=== PATIENT | male | born 1960 | race Two or more races ===

== ENCOUNTER 2021-11-24 01:10 | Inpatient (IN) | payer MEDICAID ==
[~2021-11-24] VITALS: Ht 167.6 cm; Wt 184.0 kg
[2021-11-24 02:05] LABS: BASOPHILS % (AUTO) 0.7 % (0.0-2.0); EOSINOPHILS % (AUTO) 1.5 % (1.0-6.0); HEMOGLOBIN 13.2 g/dL (13.5-17.5); LYMPHOCYTES # (AUTO) 1.3 K/uL (1.0-4.8); LYMPHOCYTES % (AUTO) 19.4 % (22.0-44.0); MEAN CORPUSCULAR HEMOGLOBIN 29.5 pg (26.0-34.0); MEAN CORPUSCULAR HGB CONC 33.7 G/dL (31.0-37.0); MEAN CORPUSCULAR VOLUME 88 fL (80-100); MONOCYTES # (AUTO) 0.6 K/uL (0.1-1.0); MONOCYTES % (AUTO) 8.1 % (2.0-9.0); NEUTROPHILS # (AUTO) 4.9 K/uL (1.8-7.7); NEUTROPHILS % (AUTO) 70.3 % (40.0-70.0); PLATELET COUNT (AUTO) 257 K/uL (150-450); RED BLOOD CELL COUNT(AUTO) 4.46 MIL/uL (4.50-5.90); RED CELL DISTRIBUTION WIDTH 13.9 % (11.5-14.5)
[2021-11-24 02:12] LABS: ANION GAP 6 mmol/L (8-16); CALCIUM, TOTAL 9.1 mg/dL (8.8-10.5); CARBON DIOXIDE 31 mmol/L (22-29); CHLORIDE 101 mmol/L (98-107); CREATININE 0.86 mg/dL (0.60-1.30); GLOMERULAR FILTR. RATE CALC > 60 mL/min (>60); GLUCOSE,RANDOM 120 mg/dL (70-110); POTASSIUM 3.4 mmol/L (3.5-5.1); SODIUM SERUM 138 mmol/L (136-145); UREA NITROGEN, BLOOD 17 mg/dL (7-18)
[2021-11-24 02:18] LABS: ALANINE AMINOTRANSFERASE 49 U/L (12-78); ALBUMIN 3.7 g/dL (3.4-5.0); ALKALINE PHOSPHATASE 80 U/L (46-116); ASPARTATE AMINOTRANSFERASE 40 U/L (15-37); BILIRUBIN,TOTAL 0.4 mg/dL (0.1-1.0)
[2021-11-24 02:38] LABS: COVID AG,FIA SOURCE NASAL SWAB
[2021-11-24] MEDS ORDERED: POTASSIUM CHLORIDE 20 MEQ ER TABLET PO ONE (06:30)
[2021-11-24] MEDS ORDERED: LORazepam 2 MG TABLET PO PRN (10:45)
[2021-11-24] MEDS ORDERED: OLANZapine 5 MG RAPDIS TABLET PO PRN (10:45)
[2021-11-24] MEDS ORDERED: ZOLPIDEM TARTRATE 10 MG TABLET PO PRN (10:45)
[2021-11-24 17:00] LABS: APPEARANCE,URINE CLEAR (CLEAR); BILIRUBIN,URINE NEGATIVE (NEGATIVE); GLUCOSE, URINE (UA) NEGATIVE (NEGATIVE); KETONES,URINE TRACE mg/dL (NEGATIVE); LEUKOCYTE ESTERASE ,URINE SMALL (NEGATIVE); NITRATE,URINE NEGATIVE (NEGATIVE); OCCULT BLOOD,URINE NEGATIVE (NEGATIVE); PH,URINE 6.5 (5.0-8.0); PROTEIN,URINE 30-70 mg/dL (NEGATIVE); SPECIFIC GRAVITIY, URINE 1.024 (1.003-1.030); UROBILINOGEN,URINE <=1.0 mg/dL (<=1.0)
[2021-11-24 17:06] LABS: AMPHET/METH SCREEN,URINE POSITIVE (NEGATIVE); BARBITURATE SCREEN, URINE NEGATIVE (NEGATIVE); BENZODIAZEPINES SCREEN,URINE NEGATIVE (NEGATIVE); CANNABINOID SCREEN,URINE NEGATIVE (NEGATIVE); COCAINE SCREEN,URINE NEGATIVE (NEGATIVE); METHADONE SCREEN, URINE NEGATIVE (NEGATIVE); OPIATE SCREEN,URINE NEGATIVE (NEGATIVE)
[2021-11-24 17:08] LABS: PHENCYCLIDINE SCREEN,URINE NEGATIVE (NEGATIVE)
[2021-11-24 17:25] LABS: BACTERIA,URINE None Seen /HPF (None Seen); RBC,URINE None Seen /HPF (0-2); SQUAMOUS EPITHELIAL CELL,UR Few /LPF (None Seen); WBC,URINE 0-2 /HPF (0-5)
[2021-11-25 11:20] VITALS: BP 111/74
[2021-11-25] MEDS ORDERED: PROMETHAZINE HCL 25 MG TABLET PO PRN (14:30)
[2021-11-25] MEDS ORDERED: GuaiFENesin/D-METHORPHAN [SUGAR-FREE] 200-20MG/10 ML SYRUP UDCUP PO PRN (14:30)
[2021-11-25] MEDS ORDERED: TUBERCULIN, PURIFIED PROTEIN DERIVATIVE 5 TU/0.1 ML SYRINGE ID ONE (14:30)
[2021-11-25] MEDS ORDERED: MAG HYDROX/AL HYDROX/SIMETH ES 30 ML SUSPENSION UDCUP PO PRN (14:30)
[2021-11-25] MEDS ORDERED: ACETAMINOPHEN 325 MG TABLET PO PRN (14:30)
[2021-11-25] MEDS ORDERED: LOPERAMIDE HCL 2 MG CAPSULE PO PRN (14:30)
[2021-11-25] MEDS ORDERED: MAGNESIUM HYDROXIDE SUSPENSION 30 ML UDCUP PO PRN (14:30)
[2021-11-25] MEDS ORDERED: HydrOXYzine PAMOATE 50 MG CAPSULE PO PRN (14:30)
[2021-11-25] MEDS: THIAMINE 100 MG TABLET PO SCH (16:17)
[2021-11-25 17:14] VITALS: BP 116/69
[2021-11-25] MEDS: MELATONIN 5 MG TABLET PO SCH (20:11)
[2021-11-25] MEDS ORDERED: OLANZapine 5 MG RAPDIS TABLET PO SCH (21:00)
[2021-11-26 06:52] LABS: HEMOGLOBIN A1C 6.3 % (3.8-5.6)
[2021-11-26 07:12] LABS: CHOL/HDL RATIO 3.9 (4.2-7.3); FREE T4 (FREE THYROXINE) 1.11 ng/dL (0.76-1.46); THYROID STIMULATING HORMONE 2.03 uIU/mL (0.36-3.74)
[2021-11-26 08:00] VITALS: BP 128/93
[2021-11-26] MEDS: OMEGA-3/DHA/EPA/FISH OIL 1,000 MG CAPSULE PO SCH (08:52)
[2021-11-26] MEDS: NALTREXONE HCL 50 MG TABLET PO SCH (08:52)
[2021-11-26] MEDS: MULTIVITAMINS WITH MINERALS, THERAPEUTIC TABLET PO SCH (08:52)
[2021-11-26] MEDS: THIAMINE 100 MG TABLET PO SCH ×2 (08:52→16:58)
[2021-11-26] MEDS: FOLIC ACID 1 MG TABLET PO SCH (08:52)
[2021-11-26 16:18] VITALS: BP 112/74
[2021-11-26] MEDS: MELATONIN 5 MG TABLET PO SCH (20:28)
[2021-11-26] MEDS: OLANZapine 5 MG RAPDIS TABLET PO SCH (20:28)
[2021-11-27 09:06] VITALS: BP 111/67
[2021-11-27] MEDS: MULTIVITAMINS WITH MINERALS, THERAPEUTIC TABLET PO SCH (09:30)
[2021-11-27] MEDS: THIAMINE 100 MG TABLET PO SCH ×2 (09:31→16:12)
[2021-11-27] MEDS: OMEGA-3/DHA/EPA/FISH OIL 1,000 MG CAPSULE PO SCH (09:31)
[2021-11-27] MEDS: FOLIC ACID 1 MG TABLET PO SCH (09:31)
[2021-11-27] MEDS: NALTREXONE HCL 50 MG TABLET PO SCH (09:31)
[2021-11-27 16:11] VITALS: BP 119/75
[2021-11-27] MEDS ORDERED: NALT50TA PO (16:35)
[2021-11-27] MEDS ORDERED: OLAN5TAB94 PO (16:35)
[2021-11-27] MEDS ORDERED: OMEG-108 PO (16:35)
[2021-11-27] MEDS ORDERED: MELA5TAB40 PO (16:35)
[2021-11-27] MEDS ORDERED: DIVA-80 PO (16:35)
[2021-11-27] MEDS: DIVALPROEX SODIUM 500 MG ER TABLET PO SCH (20:04)
[2021-11-27] MEDS: MELATONIN 5 MG TABLET PO SCH (20:04)
[2021-11-27] MEDS: OLANZapine 5 MG RAPDIS TABLET PO SCH (20:04)
[2021-11-28] MEDS: OMEGA-3/DHA/EPA/FISH OIL 1,000 MG CAPSULE PO SCH (08:16)
[2021-11-28] MEDS: FOLIC ACID 1 MG TABLET PO SCH (08:16)
[2021-11-28] MEDS: NALTREXONE HCL 50 MG TABLET PO SCH (08:16)
[2021-11-28] MEDS: MULTIVITAMINS WITH MINERALS, THERAPEUTIC TABLET PO SCH (08:16)
[2021-11-28] MEDS: THIAMINE 100 MG TABLET PO SCH ×2 (08:16→17:20)
[2021-11-28 09:50] VITALS: BP 113/80
[2021-11-28 16:04] VITALS: BP 101/79
[2021-11-28] MEDS ORDERED: NAPROXEN 500 MG TABLET PO SCH (17:00)
[2021-11-28] MEDS: OLANZapine 10 MG RAPDIS TABLET PO SCH (20:49)
[2021-11-28] MEDS: DIVALPROEX SODIUM 500 MG ER TABLET PO SCH (20:49)
[2021-11-28] MEDS: MELATONIN 5 MG TABLET PO SCH (20:49)
[2021-11-29] MEDS: NAPROXEN 500 MG TABLET PO SCH ×2 (06:35→16:24)
[2021-11-29 08:12] VITALS: BP 109/79
[2021-11-29] MEDS: THIAMINE 100 MG TABLET PO SCH ×2 (09:17→16:24)
[2021-11-29] MEDS: FOLIC ACID 1 MG TABLET PO SCH (09:17)
[2021-11-29] MEDS: NALTREXONE HCL 50 MG TABLET PO SCH (09:17)
[2021-11-29] MEDS: MULTIVITAMINS WITH MINERALS, THERAPEUTIC TABLET PO SCH (09:17)
[2021-11-29] MEDS: OMEGA-3/DHA/EPA/FISH OIL 1,000 MG CAPSULE PO SCH (09:17)
[2021-11-29 16:01] VITALS: BP 100/67
[2021-11-29] MEDS: MELATONIN 5 MG TABLET PO SCH (20:09)
[2021-11-29] MEDS: OLANZapine 10 MG RAPDIS TABLET PO SCH (20:09)
[2021-11-29] MEDS: DIVALPROEX SODIUM 500 MG ER TABLET PO SCH (20:09)
[2021-11-30] MEDS: NAPROXEN 500 MG TABLET PO SCH ×2 (06:59→16:28)
[2021-11-30 07:54] LABS: COVID AG,FIA SOURCE NASAL SWAB
[2021-11-30] MEDS: MULTIVITAMINS WITH MINERALS, THERAPEUTIC TABLET PO SCH (08:22)
[2021-11-30] MEDS: THIAMINE 100 MG TABLET PO SCH ×2 (08:22→16:28)
[2021-11-30] MEDS: NALTREXONE HCL 50 MG TABLET PO SCH (08:22)
[2021-11-30] MEDS: OMEGA-3/DHA/EPA/FISH OIL 1,000 MG CAPSULE PO SCH (08:22)
[2021-11-30] MEDS: FOLIC ACID 1 MG TABLET PO SCH (08:22)
[2021-11-30 08:30] VITALS: BP 138/82
[2021-11-30 16:19] VITALS: BP 105/69
[2021-11-30] MEDS: DIVALPROEX SODIUM 500 MG ER TABLET PO SCH (20:27)
[2021-11-30] MEDS: OLANZapine 10 MG RAPDIS TABLET PO SCH (20:27)
[2021-11-30] MEDS: MELATONIN 5 MG TABLET PO SCH (20:27)
[2021-12-01] MEDS: NAPROXEN 500 MG TABLET PO SCH ×2 (06:33→16:32)
[2021-12-01] MEDS: THIAMINE 100 MG TABLET PO SCH ×2 (08:35→16:32)
[2021-12-01] MEDS: MULTIVITAMINS WITH MINERALS, THERAPEUTIC TABLET PO SCH (08:35)
[2021-12-01] MEDS: NALTREXONE HCL 50 MG TABLET PO SCH (08:35)
[2021-12-01] MEDS: OMEGA-3/DHA/EPA/FISH OIL 1,000 MG CAPSULE PO SCH (08:35)
[2021-12-01] MEDS: FOLIC ACID 1 MG TABLET PO SCH (08:36)
[2021-12-01 09:10] VITALS: BP 119/80
[2021-12-01 16:00] VITALS: BP 130/79
[2021-12-01] MEDS: OLANZapine 10 MG RAPDIS TABLET PO SCH (20:19)
[2021-12-01] MEDS: DIVALPROEX SODIUM 500 MG ER TABLET PO SCH (20:19)
[2021-12-01] MEDS: MELATONIN 5 MG TABLET PO SCH (20:19)
[2021-12-02] MEDS: NAPROXEN 500 MG TABLET PO SCH ×2 (06:48→16:20)
[2021-12-02] MEDS: OMEGA-3/DHA/EPA/FISH OIL 1,000 MG CAPSULE PO SCH (08:18)
[2021-12-02] MEDS: MULTIVITAMINS WITH MINERALS, THERAPEUTIC TABLET PO SCH (08:18)
[2021-12-02] MEDS: THIAMINE 100 MG TABLET PO SCH ×2 (08:18→16:20)
[2021-12-02] MEDS: FOLIC ACID 1 MG TABLET PO SCH (08:19)
[2021-12-02] MEDS: NALTREXONE HCL 50 MG TABLET PO SCH (08:19)
[2021-12-02 09:08] VITALS: BP 155/99
[2021-12-02 16:00] VITALS: BP 107/69
[2021-12-02] MEDS: OLANZapine 10 MG RAPDIS TABLET PO SCH (20:25)
[2021-12-02] MEDS: MELATONIN 5 MG TABLET PO SCH (20:25)
[2021-12-02] MEDS: DIVALPROEX SODIUM 500 MG ER TABLET PO SCH (20:26)
[2021-12-03] MEDS: OMEGA-3/DHA/EPA/FISH OIL 1,000 MG CAPSULE PO SCH (08:04)
[2021-12-03] MEDS: NAPROXEN 500 MG TABLET PO SCH ×2 (08:04→16:37)
[2021-12-03] MEDS: FOLIC ACID 1 MG TABLET PO SCH (08:05)
[2021-12-03] MEDS: MULTIVITAMINS WITH MINERALS, THERAPEUTIC TABLET PO SCH (08:06)
[2021-12-03] MEDS: NALTREXONE HCL 50 MG TABLET PO SCH (08:06)
[2021-12-03] MEDS: THIAMINE 100 MG TABLET PO SCH ×2 (08:06→16:37)
[2021-12-03 09:10] VITALS: BP 134/84
[2021-12-03 16:00] VITALS: BP 119/70
[2021-12-03] MEDS: MELATONIN 5 MG TABLET PO SCH (20:33)
[2021-12-03] MEDS: OLANZapine 10 MG RAPDIS TABLET PO SCH (20:33)
[2021-12-03] MEDS: DIVALPROEX SODIUM 500 MG ER TABLET PO SCH (20:33)
[2021-12-04] MEDS: NAPROXEN 500 MG TABLET PO SCH (06:36)
[2021-12-04] MEDS: NALTREXONE HCL 50 MG TABLET PO SCH (08:20)
[2021-12-04] MEDS: THIAMINE 100 MG TABLET PO SCH ×2 (08:20→16:08)
[2021-12-04] MEDS: MULTIVITAMINS WITH MINERALS, THERAPEUTIC TABLET PO SCH (08:20)
[2021-12-04] MEDS: OMEGA-3/DHA/EPA/FISH OIL 1,000 MG CAPSULE PO SCH (08:20)
[2021-12-04] MEDS: FOLIC ACID 1 MG TABLET PO SCH (08:24)
[2021-12-04 09:17] VITALS: BP 142/76
[2021-12-04] MEDS: PANTOPRAZOLE SODIUM 40 MG DR TABLET PO SCH (12:55)
[2021-12-04] MEDS: RIVAROXABAN 20 MG TABLET PO SCH (12:55)
[2021-12-04 16:14] VITALS: BP 117/65
[2021-12-04] MEDS: MELATONIN 5 MG TABLET PO SCH (20:07)
[2021-12-04] MEDS: DIVALPROEX SODIUM 500 MG ER TABLET PO SCH (20:07)
[2021-12-04] MEDS: OLANZapine 10 MG RAPDIS TABLET PO SCH (20:08)
[2021-12-05] MEDS: OMEGA-3/DHA/EPA/FISH OIL 1,000 MG CAPSULE PO SCH (08:08)
[2021-12-05] MEDS: PANTOPRAZOLE SODIUM 40 MG DR TABLET PO SCH (08:08)
[2021-12-05] MEDS: NALTREXONE HCL 50 MG TABLET PO SCH (08:08)
[2021-12-05] MEDS: FOLIC ACID 1 MG TABLET PO SCH (08:09)
[2021-12-05] MEDS: THIAMINE 100 MG TABLET PO SCH (08:09)
[2021-12-05] MEDS: MULTIVITAMINS WITH MINERALS, THERAPEUTIC TABLET PO SCH (08:09)
[2021-12-05] MEDS: RIVAROXABAN 20 MG TABLET PO SCH (08:09)
[2021-12-05 08:27] VITALS: BP 152/96
[2021-12-05 16:12] VITALS: BP 110/73
[2021-12-05] MEDS: MELATONIN 5 MG TABLET PO SCH (21:26)
[2021-12-05] MEDS: DIVALPROEX SODIUM 500 MG ER TABLET PO SCH (21:27)
[2021-12-05] MEDS: OLANZapine 10 MG RAPDIS TABLET PO SCH (21:27)
[2021-12-06] MEDS: OMEGA-3/DHA/EPA/FISH OIL 1,000 MG CAPSULE PO SCH (08:12)
[2021-12-06] MEDS: NALTREXONE HCL 50 MG TABLET PO SCH (08:12)
[2021-12-06] MEDS: MULTIVITAMINS WITH MINERALS, THERAPEUTIC TABLET PO SCH (08:12)
[2021-12-06] MEDS: PANTOPRAZOLE SODIUM 40 MG DR TABLET PO SCH (08:13)
[2021-12-06] MEDS: RIVAROXABAN 20 MG TABLET PO SCH (08:14)
[2021-12-06 08:29] VITALS: BP 141/83
[2021-12-06] MEDS ORDERED: PANT-31 PO (09:44)
[2021-12-06] MEDS ORDERED: MULT-1239 PO (09:44)
[2021-12-06] MEDS ORDERED: RIVA20TA PO (09:44)
== END 2021-12-06 12:45 | disposition home or self-care (01) | DRG 750 ==
LOC: EMS 01:13 → 3EX 11-25 10:12 → 3EI 11-27 16:07
PROVIDERS: ADMIT Psychiatry & Neurology Psychiatry; ATTEND Psychiatry & Neurology Psychiatry
DX: F20.9 Schizophrenia, unspecified (principal); R45.851 Suicidal ideations; E11.9 Type 2 diabetes mellitus without complications; I82.441 Acute embolism and thrombosis of right tibial vein; D64.9 Anemia, unspecified; F10.10 Alcohol abuse, uncomplicated; F15.10 Other stimulant abuse, uncomplicated; F17.210 Nicotine dependence, cigarettes, uncomplicated; Z20.822 Contact with and (suspected) exposure to COVID-19; M19.90 Unspecified osteoarthritis, unspecified site; R41.843 Psychomotor deficit; Y90.9 Presence of alcohol in blood, level not specified; Z59.02 Unsheltered homelessness; Z59.00 Homelessness unspecified; Z79.84 Long term (current) use of oral hypoglycemic drugs
CPT/HCPCS: 80053; 80061; 80164; 81001; 83036; 84153; 84439; 84443; 85025; 86592; 93005; 93970; 99285; G0378; G0480; Q9967

== ENCOUNTER 2021-12-10 09:21 | Emergency (ER) | payer MEDICAID ==
[~2021-12-10] VITALS: Ht 162.6 cm; Wt 83.0 kg
[~2021-12-10 09:21] MED LIST: DIVA-80 PO; MELA5TAB40 PO; MULT-1239 PO; NALT50TA PO; OLAN5TAB94 PO; OMEG-108 PO; PANT-31 PO; RIVA20TA PO
[2021-12-10 09:27] VITALS: BP 132/78
[2021-12-10 11:03] LABS: ALANINE AMINOTRANSFERASE 43 U/L (12-78); ALKALINE PHOSPHATASE 73 U/L (46-116); ANION GAP 6 mmol/L (8-16); ASPARTATE AMINOTRANSFERASE 41 U/L (15-37); BILIRUBIN,TOTAL 0.7 mg/dL (0.1-1.0); CALCIUM, TOTAL 8.8 mg/dL (8.8-10.5); CARBON DIOXIDE 31 mmol/L (22-29); CHLORIDE 102 mmol/L (98-107); CREATININE 0.87 mg/dL (0.60-1.30); GLOMERULAR FILTR. RATE CALC > 60 mL/min (>60); GLUCOSE,RANDOM 116 mg/dL (70-110); POTASSIUM 3.5 mmol/L (3.5-5.1); SODIUM SERUM 139 mmol/L (136-145); TOTAL PROTEIN, SERUM 8.4 g/dL (6.4-8.2); UREA NITROGEN, BLOOD 20 mg/dL (7-18)
[2021-12-10 11:05] LABS: AMPHET/METH SCREEN,URINE POSITIVE (NEGATIVE); BARBITURATE SCREEN, URINE NEGATIVE (NEGATIVE); BENZODIAZEPINES SCREEN,URINE NEGATIVE (NEGATIVE); CANNABINOID SCREEN,URINE NEGATIVE (NEGATIVE); COCAINE SCREEN,URINE NEGATIVE (NEGATIVE); METHADONE SCREEN, URINE NEGATIVE (NEGATIVE); OPIATE SCREEN,URINE NEGATIVE (NEGATIVE)
[2021-12-10 11:10] LABS: PHENCYCLIDINE SCREEN,URINE NEGATIVE (NEGATIVE)
[2021-12-10 11:28] LABS: HEMATOCRIT 41.7 % (41-53); HEMOGLOBIN 13.7 g/dL (13.5-17.5); MEAN CORPUSCULAR VOLUME 88 fL (80-100); RED BLOOD CELL COUNT(AUTO) 4.71 MIL/uL (4.50-5.90)
[2021-12-10 11:29] LABS: BASOPHILS % (AUTO) 0.6 % (0.0-2.0); EOSINOPHILS % (AUTO) 0.6 % (1.0-6.0); LYMPHOCYTES # (AUTO) 1.5 K/uL (1.0-4.8); LYMPHOCYTES % (AUTO) 21.1 % (22.0-44.0); MEAN CORPUSCULAR HGB CONC 32.9 G/dL (31.0-37.0); MONOCYTES # (AUTO) 0.6 K/uL (0.1-1.0); MONOCYTES % (AUTO) 7.9 % (2.0-9.0); NEUTROPHILS # (AUTO) 4.9 K/uL (1.8-7.7); NEUTROPHILS % (AUTO) 69.8 % (40.0-70.0); PLATELET COUNT (AUTO) 263 K/uL (150-450); PLATELET MORPHOLOGY COMMENT 0; RED CELL DISTRIBUTION WIDTH 14.3 % (11.5-14.5)
== END 2021-12-10 12:43 | disposition home or self-care (01) ==
LOC: EMS 09:26
DX: R44.0 Auditory hallucinations (principal); F15.90 Other stimulant use, unspecified, uncomplicated; F17.210 Nicotine dependence, cigarettes, uncomplicated; Z86.59 Personal history of other mental and behavioral disorders
CPT/HCPCS: 36415; 80053; 80307; 85025; 99284; G0480

== ENCOUNTER 2022-02-21 18:30 | Emergency (ER) | payer MEDICAID ==
[~2022-02-21] VITALS: Ht 172.7 cm; Wt 80.0 kg
[~2022-02-21 18:30] MED LIST changes: -OMEG-108 PO; +OMEG-135 PO
[2022-02-21] MEDS ORDERED: BUPIVACAINE HCL/PF 0.25% 10 ML VIAL IARTIC ONE (22:15)
[2022-02-21] MEDS ORDERED: LIDOCAINE 1% 10 ML VIAL IARTIC ONE (22:15)
[2022-02-21 22:22] LABS: BASOPHILS % (AUTO) 0.4 % (0.0-2.0); EOSINOPHILS % (AUTO) 0 % (1.0-6.0); HEMATOCRIT 38.2 % (41-53); HEMOGLOBIN 13.1 g/dL (13.5-17.5); LYMPHOCYTES # (AUTO) 1.2 K/uL (1.0-4.8); LYMPHOCYTES % (AUTO) 11.6 % (22.0-44.0); MEAN CORPUSCULAR HEMOGLOBIN 29.9 pg (26.0-34.0); MEAN CORPUSCULAR HGB CONC 34.3 G/dL (31.0-37.0); MEAN CORPUSCULAR VOLUME 87 fL (80-100); MONOCYTES # (AUTO) 0.6 K/uL (0.1-1.0); MONOCYTES % (AUTO) 6.1 % (2.0-9.0); NEUTROPHILS # (AUTO) 8.7 K/uL (1.8-7.7); NEUTROPHILS % (AUTO) 81.9 % (40.0-70.0); PLATELET COUNT (AUTO) 263 K/uL (150-450); RED BLOOD CELL COUNT(AUTO) 4.38 MIL/uL (4.50-5.90); RED CELL DISTRIBUTION WIDTH 13.5 % (11.5-14.5)
[2022-02-21] MEDS ORDERED: POVIDONE-IODINE 10% 15 ML SOLUTION UD TP ONE (22:30)
[2022-02-21 22:34] LABS: ANION GAP 11 mmol/L (8-16); CALCIUM, TOTAL 9.3 mg/dL (8.8-10.5); CARBON DIOXIDE 22 mmol/L (22-29); CHLORIDE 102 mmol/L (98-107); CREATININE 0.82 mg/dL (0.60-1.30); GLOMERULAR FILTR. RATE CALC > 60 mL/min (>60); GLUCOSE,RANDOM 132 mg/dL (70-110); POTASSIUM 3.3 mmol/L (3.5-5.1); SODIUM SERUM 135 mmol/L (136-145); UREA NITROGEN, BLOOD 26 mg/dL (7-18)
[2022-02-21 22:36] LABS: GLUCOSE,POINT OF CARE 140 MG/DL (70-110)
[2022-02-21 22:37] LABS: ALANINE AMINOTRANSFERASE 29 U/L (12-78); ALBUMIN 3.8 g/dL (3.4-5.0); ALKALINE PHOSPHATASE 78 U/L (46-116); ASPARTATE AMINOTRANSFERASE 31 U/L (15-37); BILIRUBIN,TOTAL 1.4 mg/dL (0.1-1.0); TOTAL PROTEIN, SERUM 8.1 g/dL (6.4-8.2)
[2022-02-21] MEDS ORDERED: HYDROmorphone 2 MG/ML VIAL ONE (22:40)
[2022-02-21] MEDS ORDERED: HYDROmorphone 2 MG/ML VIAL IM ONE (23:15)
[2022-02-22] MEDS ORDERED: MIDAZOLAM HCL 5 MG/ML VIAL IVP ONE (02:15)
[2022-02-22] MEDS ORDERED: HYDROmorphone 2 MG/ML VIAL IVP ONE (02:15)
[2022-02-22] MEDS ORDERED: FLUMAZENIL 0.1 MG/ML 5 ML VIAL IVP ONE ×2 (02:19→02:30)
[2022-02-22 08:00] VITALS: BP 138/78
[2022-02-22 08:47] LABS: GLUCOSE,POINT OF CARE 159 MG/DL (70-110)
== END 2022-02-22 08:52 | disposition home or self-care (01) ==
LOC: EMS 18:30
DX: F15.10 Other stimulant abuse, uncomplicated (principal); S43.004A Unspecified dislocation of right shoulder joint, initial encounter; F17.210 Nicotine dependence, cigarettes, uncomplicated; Z86.59 Personal history of other mental and behavioral disorders; X58.XXXA Exposure to other specified factors, initial encounter; Y93.89 Activity, other specified; Y92.89 Other specified places as the place of occurrence of the external cause; Y99.8 Other external cause status
CPT/HCPCS: 99285; 23650; 80053; 82962; 85025; 36415; 73030 ×2; 73130; 96372; 96374; G0480; J3490 ×2; J1170 ×2; J2250